=== PATIENT | female | born 1970 | race Caucasian/White ===

== ENCOUNTER 2019-04-04 14:35 | Outpatient (CLI) | payer BC, SELFPAY ==
--- NOTE | 2019-04-04 13:25 | DI.RAD_ITS ---
SYMPTOM/DIAGNOSIS: LEFT KNEE PAIN LEFT KNEE: Three views. There is moderate narrowing of the medial femoral tibial joint space. Laya-articular spurring is seen involving all three joint compartments. The bones are intact and normally mineralized. There is a small suprapatellar joint effusion. IMPRESSION: Moderate degenerative changes of the left knee.
== END 2019-04-04 14:55 ==
PROVIDERS: Visit Provider Student in an Organized Health Care Education/Training Program
DX: M25.562 Pain in left knee (principal); M17.12 Unilateral primary osteoarthritis, left knee; M25.462 Effusion, left knee
CPT/HCPCS: 73562